=== PATIENT | male | born 1990 | race African-American/Black ===

== ENCOUNTER 2018-11-17 16:58 | Emergency (ER) | payer SELFPAY ==
[~2018-11-17] VITALS: Ht 188 cm; Wt 106.0 kg
[2018-11-17 17:05] VITALS: Ht 188 cm; Wt 106.0 kg
[2018-11-17] MEDS ORDERED: morphine 2 MG INJ IV STA (18:13)
[2018-11-17] MEDS ORDERED: SOD CHLORIDE 0.9% 250 ML IV ONE (18:30)
[2018-11-17] MEDS ORDERED: CEFTRIAXONE 1 GM/50 ML (PMX) 50 ML IVPB ONE (18:30)
[2018-11-17] MEDS ORDERED: LIDOCAINE 1% (MDV) 20 ML INJ SC ONE (18:30)
[2018-11-17] MEDS ORDERED: DEXAMETHASONE 10 MG/ML 1 ML INJ IV ONE (19:00)
--- NOTE | 2018-11-17 19:02 | ERD ---
ER Documentation Chief Complaint Chief Complaint SORE THROAT SINCE MONDAY HPI 28-year-old male presenting with sore throat since last Monday. Patient states he has been taking antibiotics but not feeling any better. Patient denies fever chills night sweats. Patient states the pain is 8/10 and feels like there is compression in his throat. Patient denies any allergies to medication and states that he is not currently on any medications and denies any past medical history. ROS All systems reviewed and are negative except as per history of present illness. Medications Home Meds Active Scripts Ibuprofen* (Motrin*) 600 Mg Tab, 600 MG PO Q8, #30 TAB Prov:EARLINE TREADWELL DO 11/17/18 Clindamycin Hcl* (Clindamycin Hcl*) 300 Mg Capsule, 300 MG PO TID for 10 Days, CAP Prov:EARLINE TREADWELL DO 11/17/18 Methylprednisolone* (Medrol* DOSE PACK) 4 Mg/Dose-Pack Tab.ds.pk, 4 MG PO . DIRECTED for 7 Days, PACKET Prov:EARLINE TREADWELL DO 11/17/18 Allergies Allergies: Coded Allergies: No Known Allergy (Unverified , 11/17/18) PMhx/Soc Medical and Surgical Hx: pt denies Medical Hx, pt denies Surgical Hx Hx Alcohol Use: No Hx Substance Use: No Hx Tobacco Use: No Smoking Status: Never smoker FmHx Family History: No diabetes, No coronary disease, No other Physical Exam Vitals Vital Signs Date Temp Pulse Resp B/P (MAP) Pulse Ox O2 O2 Flow FiO2 Time Delivery Rate 11/17/18 98.1 90 18 134/83 96 Room Air 22:26 (100) 11/17/18 98.1 110 16 140/92 97 17:05 (108) Physical Exam Const: Mild distress Head: Atraumatic Eyes: Normal Conjunctiva ENT: Peritonsillar abscess present on the right tonsil. The abscess is not obstructing airway and there is no presence of drainage. the patient can speak in full sentences and was not drooling. Neck: Full range of motion. No meningismus. Resp: Clear to auscultation bilaterally Cardio: Regular rate and rhythm, no murmurs Result Diagram: 11/17/18200711/17/182007 Results 24 hrs Laboratory Tests Test 11/17/18 20:08 White Blood Count 13.0 10^3/ul Red Blood Count 4.96 10^6/ul Hemoglobin 14.8 g/dl Hematocrit 43.0 % Mean Corpuscular Volume 86.7 fl Mean Corpuscular Hemoglobin 29.8 pg Mean Corpuscular Hemoglobin Concent 34.4 g/dl Red Cell Distribution Width 12.0 % Platelet Count 348 10^3/UL Mean Platelet Volume 9.7 fl Immature Granulocytes % 0.500 % Neutrophils % 76.2 % Lymphocytes % 12.2 % Monocytes % 8.0 % Eosinophils % 2.6 % Basophils % 0.5 % Nucleated Red Blood Cells % 0.0 /100WBC Immature Granulocytes # 0.070 10^3/ul Neutrophils # 9.9 10^3/ul Lymphocytes # 1.6 10^3/ul Monocytes # 1.0 10^3/ul Eosinophils # 0.3 10^3/ul Basophils # 0.1 10^3/ul Nucleated Red Blood Cells # 0.0 10^3/ul Sodium Level 141 mmol/L Potassium Level 4.0 mmol/L Chloride Level 104 mmol/L Carbon Dioxide Level 26 mmol/L Anion Gap 11 Blood Urea Nitrogen 14 mg/dl Creatinine 1.02 mg/dl Est Glomerular Filtrat Rate mL/min > 60 mL/min Glucose Level 103 mg/dl Calcium Level 9.5 mg/dl Current Medications Medications Dose Sig/Mica Start Time Status Last (Trade) Ordered Route PRN Stop Time Admin Dose Reason Admin Sodium 250 ml @ Q1H ONCE 11/17/18 DC 11/17/18 Chloride 250 mls/hr IV 18:30 11/17/18 18:30 19:29 Ceftriaxone 50 ml @ ONCE ONCE 11/17/18 DC 11/17/18 Sodium 100 mls/hr IVPB 18:30 11/17/18 18:30 18:59 Morphine 2 mg ONCE STAT 11/17/18 DC 11/17/18 Sulfate IV 18:13 11/17/18 18:30 (morphine) 18:18 Lidocaine 20 ml ONCE ONCE 11/17/18 DC (Xylocaine SC 18:30 11/17/18 1% (Mdv) 20 18:31 ml) 10 mg ONCE ONCE 11/17/18 DC 11/17/18 Dexamethasone IV 19:00 11/17/18 18:59 (Decadron) 19:01 IV Flush 10 ml STK-MED 11/17/18 DC 11/17/18 (NS 10 ml) ONCE .ROUTE 20:45 11/17/18 20:58 20:46 Sodium 100 ml @ ud STK-MED 11/17/18 DC 11/17/18 Chloride ONCE .ROUTE 20:45 11/17/18 20:58 20:46 Iohexol 150 ml STK-MED 11/17/18 DC 11/17/18 (Omnipaque ONCE .ROUTE 20:45 11/17/18 20:58 300mg/ ml) 20:46 Ketorolac 15 mg ONCE STAT 11/17/18 DC 11/17/18 Tromethamine IV 22:10 11/17/18 22:14 (Toradol) 22:11 Procedures/MDM ED Course: Peritonsillar abscess found on Physical Exam IV Fluids Pain Management Advance Imaging Medications Given Toradol NS Dexamethasone Ceftriaxone Morphine Patient tolerated medication well with no adverse reaction. Patient reported improvement in pain. Procedure Patient presents with signs and symptoms of clinical peritonsillar abscess on the right. Empiric aspiration to be attempted by Dr. Hoffman, Seizure note-1 cc of lidocaine was used for local infiltration superficially in the right peritonsillar area and 27-gauge needle with hub placed and 1 cm of needle exposed. 18-gauge needle with a hub to approximately 1 cm of needle exposure she is to aspirate the area of greatest swelling. Slight amount of opaque liquid was aspirated but no kathy pus. Procedure was aborted due to gagging and difficulty exposure. Imaging PROCEDURE: CT soft tissue neck with contrast CLINICAL INDICATION: Throat pain with concern for abscess. TECHNIQUE: The study was performed utilizing a GE [id number] multidetector CT scanner. Direct thin section helically acquired axial sections were obtained through the neck after the uneventful intravenous administration of 90 cc of Omnipaque-300. Coronal and sagittal reformations were obtained. The images were reviewed on a PACS workstation. The total CTDIvol is 9.9 mGy and the DLP is 277.6 mGy-cm. DICOM images are available. One or more of the following dose reduction techniques were utilized: 1.) Automated exposure control 2.) Adjustment of the mA +/- kV according to patient's size 3.) Use of iterative reconstruction technique. COMPARISON: No prior studies are available for comparison. FINDINGS: Aerodigestive tract evaluation demonstrates moderate generalized prominence of the pharyngeal lymphoid tissues for age with mucosal enhancement likely reflecting acute pharyngitis / tonsillitis. Asymmetrically prominent right palatine tonsil demonstrates a 1.3 x 1.0 x 1.2 cm peritonsillar abscess (axial image 16, coronal image 46, sagittal image 57). Associated phlegmon/edema extends into the medial right parapharyngeal fat and along the right fossa tonsillar sulcus. No retropharyngeal nor sublingual fluid collection. Nonspecific mild asymmetric prominence of the right submandibular gland may reflect reactive edema, without identifiable salivary ductal dilatation. The other salivary glands and the thyroid gland appear normal. Asymmetric right jugulodigastric lymphadenopathy measures up to 1.7 x 2.5 x 3.6 cm at level IIb (axial image 29, coronal image 54, sagittal image 43) and 1.0 x 1.6 x 2.6 cm at level V (axial image 42, coronal image 64, sagittal image 43), most likely reactive. Mild reversal of cervical lordosis centered on C5, with otherwise anatomic vertebral alignment. Cervical vertebral alignment is anatomic. Cervical vertebral body heights maintained at all levels. No evidence of acute fracture nor cortical disruption. Intervertebral disc spaces maintained at all levels. No identifiable pathologic enhancement within the spinal canal .Paraspinous musculature and prevertebral soft tissues appear normal. Dentition is intact with an impacted right mandibular posterior molar (axial image 18, sagittal image 78) and anatomic variant bilateral mandibular medialize d accessory bicuspid teeth, incompletely erupted on the left (axial image 21, coronal image 16). Visualized paranasal sinuses and mastoid air cells appear essentially clear. cervical vasculature, which this examination is not tailored to evaluate, appears to enhance normally. Visualized pulmonary apices appear essentially clear. IMPRESSION: 1. Asymmetrically prominent right palatine tonsil with a 1.3 cm peritonsillar abscess. 2. Otherwise moderate generalized prominence of the pharyngeal lymphoid tissues, likely reflecting acute pharyngitis / tonsillitis. No retropharyngeal or sublingual fluid collection. 3. Nonspecific mild asymmetric prominence of the right submandibular gland, which may be reactive related to right peritonsillar edema extending along the right fossa tonsillar sulcus, without evidence of salivary gland obstruction, sialolithiasis or kathy sialoadenitis. 4. Asymmetric right jugulodigastric lymphadenopathy at levels IIb and V, which is most likely reactive. 5. Nonspecific mild reversal of cervical lordosis, possibly reflecting muscle spasm. 6. Impacted right mandibular posterior molar, with anatomic variant bilateral mandibular medialized accessory bicuspid teeth, incompletely erupted on the left. Correlation with clinical dental exam suggested. Critical findings discussed with and acknowledged by Dr. Hoffman at 09:30 p.m. 11/17/2018 MDM 28 year old male presenting to the ED for sore throat. HEENT exam revealed patient has peritonsillar abscess on his right tonsil. Patient has intact airway with no obstruction. Patient denies difficulty breathing and is able to speak in full sentences. Patient denies any change in the tone of his voice and states he has been able swallow liquids and solid foods without difficulty. Patient is afebrile and denies fever, chills, body aches. Patient was given IV fluids, Morphine, Ceftriaxone, Toradol, Dexamethasone. Patient tolerated medications well and reported that his pain has improved. An attempt was made to drain the abscess by Dr. Hoffman, Lidocaine was used to anesthetize the area prior to the procedure being performed. Suction was used to prevent aspiration of the secretions during the attempt to aspirate. Only a small amount was aspirated from the abscess but no presence of pus was noted. Once the patient began to gag the procedure was stopped. The patient remained stable with intact airway and all secretions were suctioned out of the patients airway. Patient care was handed over to Earline Treadwell DO. Per Dr. Treadwell the patient would like to try outpatient treatment with a follow up with ENT specialist. Patient was discharged with prescription for Clindamycin, Ibuprofin, and medrol dose pack. Patient was given a referral for a specialist and was advised to follow up with the specialist immediately. Patient was advised if symptoms worsen or if he experiences any difficulty breathing, unable to swallow solid/liquids, fever, chills, pain, or discomfort to return to the ER immediately. The patient was consulted on the risk of complications airway compromise, aspiration pneumonia, and increase risk of systemic infection. The patient understands the complexity of his peritonsillar abscess and plans to call the specialist tomorrow. The patient's questions were answered upon discharge. Disclaimer: Inadvertent spelling and grammatical errors are likely due to EHR\dictation software use and do not reflect on the overall quality of patient care. Also, please note that the electronic time recorded on the note does not necessarily reflect the actual time of the patient encounter. Departure Diagnosis: Primary Impression: Peritonsillar abscess Condition: STAN Herrera PA-C Nov 17, 2018 19:02 ADRIANA HOFFMAN MD Nov 17, 2018 21:35
[2018-11-17] MEDS ORDERED: IOHEXOL 300MG/ML 150 ML BTL ONE (20:45)
[2018-11-17] MEDS ORDERED: SOD CHLORIDE 0.9% 100 ML ONE (20:45)
[2018-11-17] MEDS ORDERED: KETOROLAC 15 MG INJ IV STA (22:10)
--- NOTE | 2018-11-17 22:13 | QN ---
Documentation Comment This is a 28-year-old male who was originally seen in fast track for a sore throat and was found to have a peritonsillar abscess. The patient was given fluids, Decadron, Rocephin, morphine. I was called to evaluate the patient. On my evaluation the patient is afebrile, nontoxic-appearing and hemodynamically stable. He has no trismus, he is tolerating his secretions. He does have a peritonsillar abscess on the right. The patient states he is feeling much better after receiving his medications. The patient would like to try outpatient medications at this time and will be discharged home with a prescription for Medrol Dosepak, and clindamycin. He will be given ENT referral was instructed he can return to the ER at any moment if he does not feel comfortable. The patient states that he has no difficulty swallowing at this time and would like to try outpatient therapy. He will be discharged at this time. Diagnosis: Paratonsillar abscess, Right TONY TREADWELL DO Nov 17, 2018 22:13
[2018-11-17 22:26] VITALS: BP 134/83; PULSE 90; RESP 18
== END 2018-11-17 22:27 | disposition home or self-care (01) ==
LOC: FTE 16:58 → MERGE 16:58 → FTE 22:27
DX: J36 Peritonsillar abscess (principal)
CPT/HCPCS: 36415; 70491; 80048; 85025; 96365; 96375; 99285; J0696; J1100; J1885; J2270; J7040; Q9967